=== PATIENT | female | born 1960 | race Caucasian/White ===

== ENCOUNTER → 2024-04-13 08:16 | Outpatient (REF) | payer BC, SELFPAY | LOC: WDC 08:16 | PROVIDERS: ATTENDING PHYSICIAN Obstetrics & Gynecology; FAMILY PHYSICIAN Family Medicine | DX: Z12.31 Encounter for screening mammogram for malignant neoplasm of breast (principal) | CPT/HCPCS: 77063; 77067 ==

== ENCOUNTER → 2024-11-10 07:14 | Outpatient (REF) | payer BC, SELFPAY | LOC: RAD 07:14 | PROVIDERS: ATTENDING PHYSICIAN Family Medicine | DX: J98.9 Respiratory disorder, unspecified (principal); R05.9 Cough, unspecified; R09.81 Nasal congestion | CPT/HCPCS: 71046 ==

== ENCOUNTER → 2025-01-25 08:57 | Outpatient (REF) | payer BC, SELFPAY | LOC: RAD 08:57 | PROVIDERS: ATTENDING PHYSICIAN Obstetrics & Gynecology; FAMILY PHYSICIAN Family Medicine | DX: Z78.0 Asymptomatic menopausal state (principal) | CPT/HCPCS: 77080 ==

== ENCOUNTER → 2025-04-17 07:56 | Outpatient (REF) | payer BC, SELFPAY | LOC: WDC 07:56 | PROVIDERS: ATTENDING PHYSICIAN Obstetrics & Gynecology | DX: Z12.31 Encounter for screening mammogram for malignant neoplasm of breast (principal) | CPT/HCPCS: 77063; 77067 ==